=== PATIENT | female | born 1940 | race Caucasian/White ===

== ENCOUNTER → 2017-03-06 | Outpatient (CLI) | payer MEDICARE, OTHER ==
[2016-07-17 15:42] VITALS: BP 156/72
[~2017-03-06] MED LIST: AMIT25TA PO; ATEN25TA PO; CARB1TAB PO; CARB1TAB2 PO; CYAN250T5 PO; DULO20CA50 PO; FERR-26 PO; FEXO60TA25 PO; LEVO25TA4 PO; LEVO50TA5 PO; LOSA25TA PO; OMEG300C PO; POTA10CA PO; POTA8CAP PO; PRAM0.125 PO; PRAM0.255 PO; PREG20SO PO; PREG75CA PO; VIT1CAPS10 PO; ZOLP5TAB5 PO
--- NOTE | 2017-03-06 10:06 | RAD ---
Three-view bilateral knee radiographs 03/06/2017 Clinical history: Bilateral knee pain with left knee weakness. AP, lateral and oblique digital radiographs of both knees were obtained. Patient is status post right TKA. The prosthetic components are intact. No fracture or dislocation is seen. The patient is status post left TKA with longstem components. No fracture or dislocation is seen. No definite area of loosening around the prosthetic components is seen. Impression: Status post bilateral TKA. No acute osseous abnormality is seen.
== END | disposition home or self-care (01) ==
LOC: DXRADRC 09:27
PROVIDERS: ATTEND Family Medicine
DX: M25.561 Pain in right knee (principal); M25.562 Pain in left knee; R53.1 Weakness; Z96.653 Presence of artificial knee joint, bilateral
CPT/HCPCS: 73562

== ENCOUNTER → 2017-04-02 | Outpatient (CLI) | payer MEDICARE, OTHER ==
[2016-07-17 15:42] VITALS: BP 156/72
--- NOTE | 2017-04-02 15:50 | RAD ---
DATE: 04/02/2017 EXAM: MAMMO WHIT DIAG BILAT HISTORY: Diagnostic mammogram. History of right breast malignancy status post mastectomy with silicone implant. History of increased heaviness of the silicone implant. COMPARISON: 02/07/2016, 12/01/2014 mammograms This study was interpreted with the benefit of Computerized Aided Detection (CAD). The breast parenchyma shows scattered fibroglandular densities. Breast parenchyma level B. FINDINGS: Left CC and MLO views were performed. Right CC and MLO views as well as implant displaced views were performed. Left breast: There are no suspicious microcalcifications, masses or areas of architectural distortion. No change from prior mammogram. Right breast/chest wall: Silicone implant is present. No areas of silicone extravasation are identified. No suspicious masses or macro calcifications are identified in the chest wall. IMPRESSION: 1. Negative left mammogram. 2. Right-sided mastectomy. Silicone implant without extravasation. Please note a negative mammogram and ultrasound do not preclude the need for additional imaging should the patient's symptoms change. Recommended clinical management. BI-RADS CATEGORY: 2 BENIGN FINDING(S) RECOMMENDED FOLLOW-UP: 12M 12 MONTH FOLLOW-UP PQRS compliance statement: Patient information was entered into a reminder system with a target due date 04/02/2018 for the next mammogram. Mammography is a sensitive method for finding small breast cancers, but it does not detect them all and is not a substitute for careful clinical examination. A negative mammogram does not negate a clinically suspicious finding and should not result in delay in biopsying a clinically suspicious abnormality. "Our facility is accredited by the [employer] Mammography Program."
== END | disposition home or self-care (01) ==
LOC: MAMMO 13:23
PROVIDERS: ATTEND Physician Assistant Medical
DX: R92.8 Other abnormal and inconclusive findings on diagnostic imaging of breast (principal); Z85.3 Personal history of malignant neoplasm of breast; Z90.11 Acquired absence of right breast and nipple; Z98.82 Breast implant status
CPT/HCPCS: G0204; G0279; 77062; 77066

== ENCOUNTER 2017-08-15 15:54 | Emergency (ER) | payer MEDICARE, OTHER ==
[~2017-08-15] VITALS: Ht 167.6 cm; Wt 113.4 kg
[2017-08-15] MEDS ORDERED: IV NORMAL SALINE 500ML 500 ML IV ONE (16:45)
[2017-08-15 17:35] LABS: BASO # 0.3 x10^3/uL (0.0-0.2); BASO % 1 % (0-3); EOS % 0 % (0-3); HEMATOCRIT 35.9 % (36.0-47.0); HEMOGLOBIN 12.1 g/dL (12.0-15.5); LYMPH # 1.3 x10^3/uL (1.0-4.8); LYMPH % 5 % (24-48); MEAN CORPUSCULAR HEMOGLOBIN 32 pg (25-35); MEAN CORPUSCULAR HGB CONC 34 g/dL (31-37); MEAN CORPUSCULAR VOLUME 94 fL (79-100); MONO # 1.5 x10^3/uL (0.0-1.1); MONO % 6 % (0-9); NEUT # 22.3 x10^3uL (1.8-7.7); NEUT % 88 % (31-73); PLATELET COUNT 206 x10^3/uL (140-400); RED BLOOD COUNT 3.83 x10^6/uL (3.50-5.40); RED CELL DISTRIBUTION WIDTH 14.7 % (11.5-14.5); WHITE BLOOD COUNT 25.4 x10^3/uL (4.0-11.0)
[2017-08-15 17:51] LABS: ALBUMIN 3.3 g/dL (3.4-5.0); CALCIUM 8.4 mg/dL (8.5-10.1); CREATININE 0.9 mg/dL (0.6-1.0); GFR 60.7; POTASSIUM 3.8 mmol/L (3.5-5.1); TOTAL BILIRUBIN 1.1 mg/dL (0.2-1.0); TOTAL PROTEIN 7.1 g/dL (6.4-8.2)
[2017-08-15 17:52] LABS: DIRECT BILIRUBIN 0.1 mg/dL (0.0-0.2)
[2017-08-15 17:57] LABS: BACTERIA,URINE 0 /HPF (0-FEW); BILIRUBIN,URINE NEG (NEG); CLARITY,URINE HAZY; COLOR,URINE YELLOW; GLUCOSE,URINE NEG (NEG); NITRITE,URINE NEG (NEG); SQUAMOUS EPITHELIAL CELL,UR MOD /LPF; UROBILINOGEN,URINE 0.2 mg/dL (0.2 mg/dL)
[2017-08-15] MEDS ORDERED: VANCOMYCIN PER PHARMACY MC PRN (18:00)
--- NOTE | 2017-08-15 18:19 | PHYS DOC ---
Past History Past Medical History: Cancer, GERD, Hypertension, Hypothyroid, Other Past Surgical History: Cholecystectomy, Hysterectomy, Knee Replacement, Other Alcohol Use: Rarely Drug Use: None Adult General Chief Complaint Chief Complaint: FEVER HPI HPI 76-year-old female status post right breast implant surgery on the seventh of this month postoperative day 17 presenting the emergency department with chills and fevers at home. She reports increased drainage with cloudy fluid. She still has her SHEBA drain and on the right. She denies any pain. She denies a cough. She denies neck stiffness or confusion. She denies polyuria or dysuria. Nonradiating intermittent and without alleviating factors. Review of systems is negative for chest pain shortness of breath abdominal pain nausea vomiting. All other review of systems is negative unless otherwise noted in history of present illness. ED course: 76-year-old female presenting with fever postoperative to breast implant surgery on the right in [facility]. Upon arrival the patient is afebrile with mild tachycardia. Blood work obtained along with chest x-ray. Chest x-ray reviewed by myself shows mild radio opacification the right lower lobe could be atelectasis versus infiltrate. Blood work shows significant leukocytosis with lactic acidosis. Urinalysis ordered. Discussed the case with Mami MACK 2 times. She asked me to place Betadine in the SHEBA drain which I did. I called her back after I get the results of the patient's CBC and lactate. She referred me to Dr. simons. I discussed case with Dr. simons who agrees with admission to the hospital. I also discussed the case with our hospitalist who feels uncomfortable admitting the patient without a breast surgeon to consult. Dr. simons stated that he would be comfortable admitting the patient to [facility] primarily to a hospitalist team and he would be happy to consult. The patient was then admitted to [facility] as a direct admission to the hospitalist team for IV antibiotic therapy further evaluation workup and care. It took a while for the hospitalist team to call me back so I signed out the conversation to Dr. Rodriguez on the rn shift mgr. Plan to remain as above. Review of Systems Review of Systems SEE ABOVE. Current Medications Current Medications Current Medications Medications (Trade) Dose Ordered Sig/Kristy Start Time Stop Time Status Last Admin Dose Admin Levofloxacin/ Dextrose 100 ml @ 100 mls/hr 1X ONCE 08/15/17 18:00 08/15/17 18:59 UNV Sodium Chloride 2,000 ml @ 2,000 mls/hr Q1H 08/15/17 18:00 UNV Vancomycin HCl (Vanco Per Pharmacy) 1 each PRN DAILY PRN 08/15/17 18:00 UNV Allergies Allergies Allergies Coded Allergies Type Severity Reaction Last Updated Verified Penicillins Allergy Intermediate 07/14/16 Yes Physical Exam Physical Exam SEE ABOVE Constitutional: Well developed, well nourished, no acute distress, non-toxic appearance. HENT: Normocephalic, atraumatic, bilateral external ears normal, oropharynx moist, no oral exudates, nose normal. [] Eyes: PERRLA, EOMI, conjunctiva normal, no discharge. Neck: Normal range of motion, no tenderness, supple, no stridor. Negative for meningismus. Cardiovascular:Heart rate regular rhythm, no murmur [] Lungs & Thorax: The patient's right chest wall is normal in temperature to palpation. There is no erythema of the breast tissue. No erythema of the surgical scar. Scar is clean dry and intact. Healing well. There is a SHEBA drain which drain serosanguineous fluid with adipose tissue that is mildly cloudy. Abdomen: Bowel sounds normal, soft, no tenderness, no masses, no pulsatile masses. Skin: Warm, dry, no erythema, no rash. [] Back: No tenderness, no CVA tenderness. Extremities: No tenderness, no cyanosis, no clubbing, ROM intact, no edema. [] Neurologic: Alert and oriented X 3, normal motor function, normal sensory function, no focal deficits noted. Psychologic: Affect normal, judgement normal, mood normal. [] Current Patient Data Vital Signs Vital Signs Date Time Temp Pulse Resp B/P (MAP) Pulse Ox O2 Delivery O2 Flow Rate FiO2 08/15/17 17:51 87 16 141/71 (94) 100 Room Air 08/15/17 16:20 98.5 Lab Results Laboratory Tests Test 08/15/17 17:05 White Blood Count 25.4 x10^3/uL (4.0-11.0) H Red Blood Count 3.83 x10^6/uL (3.50-5.40) Hemoglobin 12.1 g/dL (12.0-15.5) Hematocrit 35.9 % (36.0-47.0) L Mean Corpuscular Volume 94 fL (79-100) Mean Corpuscular Hemoglobin 32 pg (25-35) Mean Corpuscular Hemoglobin Concent 34 g/dL (31-37) Red Cell Distribution Width 14.7 % (11.5-14.5) H Platelet Count 206 x10^3/uL (140-400) Neutrophils (%) (Auto) 88 % (31-73) H Lymphocytes (%) (Auto) 5 % (24-48) L Monocytes (%) (Auto) 6 % (0-9) Eosinophils (%) (Auto) 0 % (0-3) Basophils (%) (Auto) 1 % (0-3) Neutrophils # (Auto) 22.3 x10^3uL (1.8-7.7) H Lymphocytes # (Auto) 1.3 x10^3/uL (1.0-4.8) Monocytes # (Auto) 1.5 x10^3/uL (0.0-1.1) H Eosinophils # (Auto) 0.0 x10^3/uL (0.0-0.7) Basophils # (Auto) 0.3 x10^3/uL (0.0-0.2) H Platelet Estimate Pending Urine Collection Type Unknown Urine Color Yellow Urine Clarity Hazy Urine pH 5.5 Urine Specific [place] 1.025 Urine Protein 30 mg/dl (NEG-TRACE) Urine Glucose (UA) Neg mg/dL (NEG) Urine Ketones (Stick) Trace mg/dL (NEG) Urine Blood Trace (NEG) Urine Nitrite Neg (NEG) Urine Bilirubin Neg (NEG) Urine Urobilinogen Dipstick 0.2 mg/dL (0.2 mg/dL) Urine Leukocyte Esterase Neg (NEG) Urine RBC 1-2 /HPF (0-2) Urine WBC 1-4 /HPF (0-4) Urine Squamous Epithelial Cells Mod /LPF Urine Bacteria 0 /HPF (0-FEW) Urine Mucus Mod /LPF Sodium Level 138 mmol/L (136-145) Potassium Level 3.8 mmol/L (3.5-5.1) Chloride Level 102 mmol/L (98-107) Carbon Dioxide Level 23 mmol/L (21-32) Anion Gap 13 (6-14) Blood Urea Nitrogen 11 mg/dL (7-20) Creatinine 0.9 mg/dL (0.6-1.0) Estimated GFR (Cockcroft-Gault) 60.7 Glucose Level 131 mg/dL (70-99) H Lactic Acid Level 3.4 mmol/L (0.4-2.0) H Calcium Level 8.4 mg/dL (8.5-10.1) L Total Bilirubin 1.1 mg/dL (0.2-1.0) H Direct Bilirubin 0.1 mg/dL (0.0-0.2) Aspartate Amino Transferase (AST) 16 U/L (15-37) Alanine Aminotransferase (ALT) 10 U/L (14-59) L Alkaline Phosphatase 64 U/L (46-116) Total Protein 7.1 g/dL (6.4-8.2) Albumin 3.3 g/dL (3.4-5.0) L Lipase 56 U/L (73-393) L EKG EKG [] Radiology/Procedures Radiology/Procedures [] Course & Med Decision Making Course & Med Decision Making Pertinent Labs and Imaging studies reviewed. (See chart for details) See Dr. Rush charting for details Impression: 1. Sepsis Transfer to [facility]-- Dr. Saadia Hilton- Hospitalist- She will make surgery consult. Discussed presentation, labs, testing, radiographs - accepted pt in transfer. [] Dragon Disclaimer Dragon Disclaimer This electronic medical record was generated, in whole or in part, using a voice recognition dictation system. Departure Departure: Impression: Primary Impression: Severe sepsis Disposition: 02 XFER SHT-TRM HOSP Condition: STABLE Referrals: MARGOT SIM (PCP) ELSY RUSH MD Aug 15, 2017 18:19 JOHNNA MENDOZA MD Aug 15, 2017 20:52
[2017-08-15] MEDS ORDERED: IV NORMAL SALINE 1,000ML 1,000 ML IV SCH (18:30)
[2017-08-15] MEDS ORDERED: VANCOMYCIN 2 GM in IV NORMAL SALINE 500ML 500 ML IV ONE (19:00)
[2017-08-15 19:11] VITALS: BP 148/71
[2017-08-15 19:18] LABS: % BANDS 10 % (0-9); % LYMPHS 9 % (24-48); % MONOS 1 % (0-10); % MYELOS 1 % (0-0); % SEGS 79 % (35-66)
[2017-08-15 19:24] LABS: PLT ESTIMATE ADEQUATE (ADEQUATE)
[2017-08-15 19:25] LABS: TOXIC GRANULATION PRESENT
[2017-08-15 19:26] LABS: TOXIC VACUOLATION PRESENT
[2017-08-15] MEDS ORDERED: IV NORMAL SALINE 500ML 500 ML ONE (19:35)
[2017-08-15] MEDS ORDERED: VANCOMYCIN 1 GM VIAL. ONE (19:35)
[2017-08-15 19:36] LABS: OVALOCYTES FEW
--- NOTE | 2017-08-16 09:02 | RAD ---
Single view chest History:fever An AP view of the chest is submitted. Comparison: 07/14/2016. Findings: There is no significant infiltrate, pleural effusion, or pneumothorax. Pericardial cardiac silhouette is similar, upper limits of normal. There is a somewhat tortuous thoracic aorta. Impression: No significant infiltrate is identified.
== END 2017-08-15 20:40 | disposition short-term general hospital (02) ==
LOC: ER 15:54
DX: T81.4XXA Infection following a procedure, initial encounter (principal); R65.20 Severe sepsis without septic shock; K21.9 Gastro-esophageal reflux disease without esophagitis; E03.9 Hypothyroidism, unspecified; I10 Essential (primary) hypertension; E87.2 Acidosis; Z98.82 Breast implant status; Z88.0 Allergy status to penicillin
CPT/HCPCS: 36415; 71010; 80048; 80076; 81001; 83605; 83690; 85007; 85025; 87040; 96365; 99285; J1956; J7040

== ENCOUNTER → 2017-08-25 | Outpatient (CLI) | payer MEDICARE, OTHER ==
[2017-08-15 19:11] VITALS: BP 148/71
[2017-08-25 14:40] LABS: BASO % 1 % (0-3); EOS # 0.4 x10^3/uL (0.0-0.7); EOS % 7 % (0-3); HEMATOCRIT 33.9 % (36.0-47.0); HEMOGLOBIN 11.5 g/dL (12.0-15.5); LYMPH # 1.7 x10^3/uL (1.0-4.8); LYMPH % 27 % (24-48); MEAN CORPUSCULAR HEMOGLOBIN 32 pg (25-35); MEAN CORPUSCULAR HGB CONC 34 g/dL (31-37); MEAN CORPUSCULAR VOLUME 93 fL (79-100); MONO # 0.6 x10^3/uL (0.0-1.1); MONO % 10 % (0-9); NEUT # 3.4 x10^3uL (1.8-7.7); NEUT % 55 % (31-73); PLATELET COUNT 270 x10^3/uL (140-400); RED BLOOD COUNT 3.64 x10^6/uL (3.50-5.40); RED CELL DISTRIBUTION WIDTH 14.8 % (11.5-14.5); WHITE BLOOD COUNT 6.1 x10^3/uL (4.0-11.0)
--- NOTE | 2017-08-25 14:51 | RAD ---
Examination: 2 views of the chest History: History of cough Comparison: 08/15/2017 Findings: The cardiomediastinal silhouette grossly appears unremarkable. There is no acute infiltrate or visualized pneumothorax. Impression: No acute cardiopulmonary findings.
== END | disposition home or self-care (01) ==
LOC: RAD 14:06
PROVIDERS: ATTEND Physician Assistant Medical
DX: R05 Cough (principal)
CPT/HCPCS: 36415; 71020; 85025

== ENCOUNTER → 2017-08-29 | Outpatient (CLI) | payer MEDICARE, OTHER ==
[2017-08-15 19:11] VITALS: BP 148/71
[~2017-08-29] MED LIST changes: +IOHEXOL 300 MG/ML 75 ML VIAL. IV ONE
--- NOTE | 2017-08-29 08:51 | RAD ---
Examination: CT angiographic chest History: History of shortness of breath Comparison: 07/14/2016 Technique: Axial CT angiographic images of the chest were performed with IV contrast. Coronal and sagittal 3-D MIP reformats are performed. PQRS Compliance Statement: One or more of the following individualized dose reduction techniques were utilized for this examination: 1. Automated exposure control 2. Adjustment of the mA and/or kV according to patient size 3. Use of iterative reconstruction technique Findings: The visualized thyroid gland grossly appears unremarkable. The central airways are patent. The heart size grossly appears unremarkable. There is no evidence of filling defect identified in the main pulmonary arterial trunk and right and left main pulmonary arteries and the visualized lobar, segmental branches of the pulmonary arteries. Few scattered calcified granulomas identified in the bilateral lungs. Otherwise the lungs are clear. Mild coronary artery calcifications. Moderate aortic atherosclerosis. The visualized liver, spleen, adrenals grossly appears unremarkable. A drain tubing identified in the right breast region skin thickening of the right in the right breast region. Moderate degenerative changes thoracic spine. Impression: 1. No evidence of central pulmonary embolism. 2. Mild coronary artery calcifications. 3. Surgical changes identified in the right breast with a drain tubing identified in the right breast with skin thickening of the right breast probably prior post therapeutic changes. Correlate clinically.
[2017-08-29 09:36] LABS: CALCIUM 8.9 mg/dL (8.5-10.1); CREATININE 0.8 mg/dL (0.6-1.0); GFR 69.4; POTASSIUM 4.3 mmol/L (3.5-5.1)
[2017-08-29 09:39] LABS: BASO % 1 % (0-3); EOS # 0.1 x10^3/uL (0.0-0.7); EOS % 1 % (0-3); HEMATOCRIT 31.4 % (36.0-47.0); HEMOGLOBIN 10.7 g/dL (12.0-15.5); LYMPH # 1.4 x10^3/uL (1.0-4.8); LYMPH % 21 % (24-48); MEAN CORPUSCULAR HEMOGLOBIN 32 pg (25-35); MEAN CORPUSCULAR HGB CONC 34 g/dL (31-37); MEAN CORPUSCULAR VOLUME 93 fL (79-100); MONO # 0.6 x10^3/uL (0.0-1.1); MONO % 9 % (0-9); NEUT # 4.8 x10^3uL (1.8-7.7); NEUT % 69 % (31-73); PLATELET COUNT 317 x10^3/uL (140-400); RED BLOOD COUNT 3.38 x10^6/uL (3.50-5.40); RED CELL DISTRIBUTION WIDTH 14.6 % (11.5-14.5)
[2017-08-29 10:42] LABS: SEDIMENTATION RATE 62 (0-25)
== END | disposition home or self-care (01) ==
LOC: CT 07:45
PROVIDERS: ATTEND Physician Assistant Medical
DX: J84.10 Pulmonary fibrosis, unspecified (principal); I70.0 Atherosclerosis of aorta; I25.10 Atherosclerotic heart disease of native coronary artery without angina pectoris; M47.894 Other spondylosis, thoracic region; I10 Essential (primary) hypertension; K21.9 Gastro-esophageal reflux disease without esophagitis; Z98.890 Other specified postprocedural states
CPT/HCPCS: 36415; 71275; 80048; 85025; 85651; Q9967

== ENCOUNTER → 2017-09-30 | Outpatient (CLI) | payer MEDICARE, OTHER ==
[~2017-09-30] MED LIST changes: -IOHEXOL 300 MG/ML 75 ML VIAL. IV ONE
--- NOTE | 2017-09-30 16:04 | RAD ---
Indication: Cough Technique: PA and lateral views of the chest Comparison: Previous study from 08/25/2017 Findings: Heart is top normal in size. Lungs are clear. No pneumothorax or pleural effusion. Visualized bony thorax is within normal limits. Impression: No acute cardiopulmonary process.
== END | disposition home or self-care (01) ==
LOC: PMG 15:18
PROVIDERS: ATTEND Physician Assistant Medical
DX: R05 Cough (principal); I10 Essential (primary) hypertension
CPT/HCPCS: 71046

== ENCOUNTER → 2018-09-11 | Outpatient (CLI) | payer MEDICARE, OTHER ==
[~2018-09-11] MED LIST changes: -ATEN25TA PO; +ATEN25TA42 PO; -FERR-26 PO; +FERR325T14 PO
--- NOTE | 2018-09-11 17:35 | RAD ---
Ultrasound of the right lateral neck HISTORY: Right lateral neck lump. TECHNIQUE: Grayscale and color Doppler imaging performed at the area of concern. FINDINGS: There is an ovoid hypoechoic nodule corresponding with the palpable lump, measures 11 x 9 x 5 mm. This demonstrates a central vascular hilum and likely represents a mildly enlarged lymph node. There are 3 additional subcentimeter nodules in the area. IMPRESSION: 11 mm mass at the area of concern, compatible with a mildly enlarged nonspecific lymph node. There are several adjacent smaller nodules. Recommend clinical and/or sonographic follow-up to document regression and exclude enlargement, and correlate with clinical history for any risk factors for willy mass. Electronically signed by: Leroy Clinton MD (09/11/2018 5:31 PM) [id number]
== END | disposition home or self-care (01) ==
LOC: US 13:03
PROVIDERS: ATTEND Physician Assistant Medical
DX: R22.1 Localized swelling, mass and lump, neck (principal)
CPT/HCPCS: 76536

== ENCOUNTER → 2018-12-15 | Outpatient (CLI) | payer MEDICARE, OTHER ==
--- NOTE | 2018-12-15 13:09 | RAD ---
EXAM: Neck sonogram. HISTORY: Right neck lump. TECHNIQUE: Sonographic imaging of the neck was performed. COMPARISON: 09/11/2018. FINDINGS: There are multiple small right neck nodules with a sonographic appearance consistent with lymph nodes, the largest of which measures 8 mm in long axis in the supraclavicular region. This corresponds with the location of a previously demonstrated 11 mm lymph node at a site of reported palpable concern. There are few additional smaller surrounding supraclavicular lymph nodes and cervical chain lymph nodes. There is slight cortical thickening involving a few lymph nodes. IMPRESSION: Multiple right supraclavicular and cervical chain lymph nodes, the largest of which within the right supraclavicular region at the site of palpable concern measures 8 mm in long axis and is likely decreased compared to the prior study. There are few additional smaller lymph nodes which are similar compared to the prior exam, some of which demonstrate slight cortical thickening and are likely physiologic or reactive in etiology. Electronically signed by: Aundrea Mooney MD (12/15/2018 1:06 PM) [place] [id number]
== END | disposition home or self-care (01) ==
LOC: US 10:41
PROVIDERS: ATTEND Surgery
DX: R22.1 Localized swelling, mass and lump, neck (principal)
CPT/HCPCS: 76536

== ENCOUNTER → 2020-03-30 | Outpatient (CLI) | payer MEDICARE, OTHER ==
--- NOTE | 2020-03-30 11:28 | RAD ---
Bilateral lower extremity arterial duplex ultrasound 03/30/2020 INDICATION: Bilateral lower extremity pain. COMPARISON STUDY: None TECHNIQUE: Ultrasound evaluation of the major arteries of the bilateral lower extremities was performed including color Doppler imaging spectral analysis. FINDINGS: Essentially normal waveform morphologies and velocities are seen throughout the major arteries of the bilateral lower extremities. No focal elevation in velocity suggestive of hemodynamically significant stenosis is identified. No major arterial occlusion is seen. Mild diffuse atherosclerotic vascular calcification is seen. IMPRESSION: Mild diffuse atherosclerotic vascular disease without ultrasound evidence of focal hemodynamically significant stenosis Electronically signed by: Tushar Zimmer MD (03/30/2020 11:25 AM) [id number]
== END ==
LOC: US 10:40
PROVIDERS: ATTEND Physician Assistant Medical
DX: I70.203 Unspecified atherosclerosis of native arteries of extremities, bilateral legs (principal)
CPT/HCPCS: 93925

== ENCOUNTER → 2020-12-26 | Outpatient (CLI) | payer MEDICARE, OTHER ==
--- NOTE | 2020-12-26 17:14 | RAD ---
Exam Date: 12/26/2020 9:48 AM XR KNEE 3 [id number] Indication: Reason: KNEE PAIN, NKI / Spl. Instructions: / History: COMPARISON: March 06, 2017 FINDINGS/ IMPRESSION: Status post total knee arthroplasty with patella resurfacing. No evidence for hardware f ailure, loosening, acute fracture, or dislocation. Alignment is anatomic. Electronically signed by: Celestino Luu MD (12/26/2020 5:12 PM) [id number]
== END ==
LOC: PMG 09:27
PROVIDERS: ATTEND Physician Assistant Medical
DX: M17.11 Unilateral primary osteoarthritis, right knee (principal); Z96.651 Presence of right artificial knee joint
CPT/HCPCS: 73562

== ENCOUNTER → 2021-12-21 | Outpatient (CLI) | payer MEDICARE, OTHER ==
[~2021-12-21] MED LIST changes: +CARB-186 PO; -CARB1TAB PO; -CARB1TAB2 PO; +[UNRECOGNIZED DRUG - CODE] PO
--- NOTE | 2021-12-22 04:16 | RAD ---
EXAMINATION: XR CHEST 2V CLINICAL HISTORY: Cough. EXAM DATE/TIME: 12/21/2021 3:43 PM COMPARISON: None FINDINGS: Lines, Tubes, and Devices: None. Cardiomediastinal Silhouette: Normal heart size. Lungs and Pleura: No evidence of focal airspace consolidation or pleural effusion. Mild bibasilar sub segmental atelectasis and/or scarring. Pulmonary vasculature unremarkable. Bones and Soft Tissues: Degenerative changes in the thoracic spine. IMPRESSION: No evidence of acute cardiopulmonary abnormality. Electronically signed by: Scooter Gilmore DO (12/22/2021 4:13 AM) [facility]
== END ==
LOC: RAD 15:25
PROVIDERS: ATTEND Internal Medicine Pulmonary Disease
DX: R06.02 Shortness of breath (principal); R05.9 Cough, unspecified; M47.814 Spondylosis without myelopathy or radiculopathy, thoracic region
CPT/HCPCS: 71046